=== PATIENT | male | born 1995 | race Two or more races ===

== ENCOUNTER 2017-01-07 13:33 | Emergency (ER) | payer MEDICAID ==
--- NOTE | 2017-01-07 14:58 | ED Physician Chart ---
Chief Complaint/HPI - Patient Information Date Seen:: 01/07/17 Time Seen:: 14:00 Chief Complaint:: Dog bites in both lower extremities occurred about 3 weeks ago. History of Present Illness:: Pt sustained multiple dog bites in L thigh, right and left lower legs about 3 weeks ago. No pain. Pt staes that he went into someone's property near his neighborhood and was bitten by 2 dogs. The dogs were later restrained by the tongue and groove machine feeder to prevent further dog attack. No fever. Pt denies other bodily injury. He has been ambulatory without difficulty. No weakness or numbness. Last tetanus immunization about 2 years ago according to pt. Allergies:: Allergies Allergy/AdvReac Type Severity Reaction Status Date / Time No Known Allergies Allergy Verified 01/07/17 14:19 Vitals:: Vital Signs - 8 hr 01/07/17 14:19 Temp 98.2 F HR 99 RR 18 BP 142/80 O2 Sat % 98 Historian:: Patient Family MD/PCP:: unknown LMP:: N/A Review:: Nurse's Note Reviewed Review of Systems - Review of Systems General/Constitutional: No fever, No chills, No weight loss, No weakness, No diaphoresis, No edema, No loss of appetite Skin: Other (healing wounds in both LE's, see Physical Exam.) Head: No headache, No light-headedness Eyes: No loss of vision, No pain, No diplopia ENT: No earache, No nasal drainage, No sore throat, No tinnitus Neck: No neck pain, No swelling, No thyromegaly, No stiffness, No mass noted Cardio Vascular: No chest pain, No palpitations, No PND, No orthopnea, No edema Pulmonary: No SOB, No cough, No sputum, No wheezing GI: No nausea, No vomiting, No diarrhea, No pain, No melena, No hematochezia, No constipation, No hematemesis G/U: No dysuria, No frequency, No hematuria Musculoskeletal: No bone or joint pain, No back pain, No muscle pain Endocrine: No polyuria, No polydipsia Psychiatric: No prior psych history Hematopoietic: No bruising, No lymphadenopathy Allergic/Immuno: No urticaria, No angioedema Neurological: No syncope, No focal symptoms, No weakness, No paresthesia, No headache, No seizure, No dizziness, No confusion, No vertigo Past Medical History - Past Medical History Past Medical History: No significant medical hx Family History: Diabetes Melitus (in mother.) Social History: Smoker (5 cigarets daily. Pt has been informed about health risks associated with chronic tobacco use and has been advised to quit. Pt has been encouraged to enroll in a smoking cessation program. Pt acknowledges understanding.), Alcohol ( 2-3 beers daily. Pt has been informed about health risks associated with alcohol use and has been advised to stop. Pt acknowledges understanding.), No Drug Use, Single, Lives Alone Employment:: unemployed. Surgical History: None Psychiatricy History: None Medication: Reviewed Family Medical History - Family Member Mother History Unknown: Yes Physical Exam - Physical Examination General/Constitutional: Awake, Well-developed, well-nourished, Alert, No distress, GCS 15, Non-toxic appearing, Ambulatory Other Gen/Cons comments:: Breathes comfortably, speaks clearly, and ambulates without difficulty. Head: Atraumatic Eyes: Lids, conjuctiva normal, PERRL, EOMI Skin: No ecchymosis, Well hydrated, No lymphadenopathy Other Skin comments:: see also Extremities Exam below. ENMT: External ears, nose nl, Nasal exam nl, Lips, teeth, gums nl, Oropharynx nl Neck: Nontender, Full ROM w/o pain, No nuchal rigidity, No mass, No stridor Respiratory: Nl effort/Exclusion, Clear to Auscultation, No Wheeze/Rhonchi/Rales Cardio Vascular: RRR, No murmur, gallop, rubs GI: No tenderness/rebounding/guarding, No organomegaly, No hernia, Normal BS's, Nondistended, No mass/bruits, No McBurney tenderness Other GI comments:: Abdomen is soft. Extremities: No tenderness or effusion, Full ROM, normal strength in all extremities, No edema, Normal digits & nails Other Extremities comments:: Both LE's: FROM of all joints. There are multiple healing superficial skin wounds, most notably an approx. 1 x 2.5 cm wound with dry scab at lateral aspect of L mid thigh. No exudate, erythema, swelling or tenderness. R lower leg has an approx 2 x 2 cm healing wound at distal anterolateral aspect with dry scab and minimal peripheral erythema. No exudate or swelling. L lower leg has an approx. 1 x 2 cm healing wound at anterior distal aspect with dry scab and minimal peripheral erythema. No exudate or swelling. No motor/sensory/ vascular deficit in both LE's. Good distal pulses. Neuro/Psych: Alert/oriented (oriented x 3.), Mood normal, Normal gait, No focal deficits ED Septic Shock - . Is Septic Shock (SBP<90, OR Lactate>4 mmol\L) present?: No - <6hrs of presentation: Vital Signs: Vital Signs - 8 hr 01/07/17 14:19 Temp 98.2 F HR 99 RR 18 BP 142/80 O2 Sat % 98 Reassessment (Disposition) - Reassessment Reassessment:: 1515 Pt remains stable. Pt requests to go home now and does not want further observation/management in hospital. Aftercare instructions have been given. - Diagnosis Diagnosis:: h/o multiple dog bites with healing wounds. Possible early cellulitis. Stable. - Aftercare/Follow up Instructions Aftercare/Follow-Up Instructions:: Refer to Discharge Instructions Notes:: Animal Bite Report has been filed per nursing staff. Wound care instructions given. Avoid picking on scabs. May take Motrin 200 mg tab 3-4 tabs po q8h prn pain. F/U with Dr. Odom or PCP of pt's choice in 1-2 days for recheck. Return to ER immediately if condition worsens or if any further questions/problems. Medication Prescribed:: Augmentin 875/125 mg tab one tab po q12h for 10 days. D-20 R-0 Bactrim DS one tab po q12h for 10 days. D-20 R-0 - Patient Disposition Discharge/Transfer:: Home Time:: 15:20 Condition at Disposition:: Stable, Improved
== END 2017-01-07 15:18 | disposition home or self-care (01) ==
LOC: ER 13:33
DX: S80.872D Other superficial bite, left lower leg, subsequent encounter (principal); S80.871D Other superficial bite, right lower leg, subsequent encounter; F17.210 Nicotine dependence, cigarettes, uncomplicated; W54.0XXD Bitten by dog, subsequent encounter
CPT/HCPCS: Z7502